=== PATIENT | female | born 1975 | race African-American/Black ===

== ENCOUNTER 2023-10-16 19:37 | Inpatient (IN) | payer OTHER, SELFPAY ==
[2023-10-16] MEDS ORDERED: hydrALAZINE 20 MG/ML VIAL SLOW IVP PRN (21:26)
[2023-10-16] MEDS ORDERED: Labetalol HCl 100 MG/20 ML VIAL SLOW IVP PRN (21:26)
[2023-10-16] MEDS ORDERED: Acetaminophen 325 MG TAB PO PRN (21:26)
[2023-10-16] MEDS ORDERED: Ondansetron PF 4 MG/2 ML Vial IVP PRN (21:26)
[2023-10-17 05:46] LABS: #Eosinphils 0.1 thou/uL (0.0-0.7); #Monocytes 0.3 thou/uL (0.11-0.59); #Neutrophils 1.4 thou/uL (1.40-6.50); %Basophils 0.3 % (0.0-1.0); %Eosinophils 2.2 % (0.0-10.0); %Lymphocytes 43.6 % (21.0-51.0); %Monocytes 9.3 % (0.0-10.0); %Neutrophils 44.3 % (42.0-75.0); Hematocrit 32.4 % (36.0-47.0); Hemoglobin 10.2 g/dL (12.0-16.0); Mean Corpuscular HGB CONC 31.5 g/dL (32.0-36.0); Mean Corpuscular Hemoglobin 24.2 pg (27.0-31.0); Mean Platelet Volume 9.9 fL (7.4-10.4); Platelet Count 242 10x3/uL (130-400); RBC Distribution Width 14.6 % (11.5-14.5); Red Blood Cell (RBC) Count 4.21 mill/uL (4.20-5.40); White Blood Cell (WBC) Count 3.2 10x3/uL (4.8-10.8)
[2023-10-17 06:05] LABS: Anion Gap 15 mmol/L (10-20); BUN (Urea Nitrogen) 10 mg/dL (7.0-18.7); Calc. Creatinine Clearance 158 mL/min (70-130); Calcium 8.6 mg/dL (7.8-10.44); Carbon Dioxide 24 mmol/L (22-29); Cardiac Risk 3.9 (Less than 4.5); Chloride 103 mmol/L (98-107); Cholesterol 275 mg/dl (< 200 Desired); Estimated GFR 112; Glucose 108 mg/dL (70-105); HDL Cholesterol 71 mg/dL (>60 Neg Risk); LDL Cholesterol, Calculated 183 mg/dL; Potassium 3.8 mmol/L (3.5-5.1); Sodium 138 mmol/L (136-145); Triglycerides 105 mg/dL (Less than 150)
[2023-10-17] MEDS: Aspirin 325 mg Enteric Coated Tablet PO SCH (09:19)
[2023-10-17 13:36] LABS: PTT 29.1 sec (22.9-36.1)
[2023-10-17 13:37] LABS: D-Dimer Test 1.67 mcg/mL (0.27-0.43); Prothrombin Time 12.8 sec (12.0-14.7)
[2023-10-17 15:11] LABS: Hemoglobin A1c 6.1 % (4.0-6.0)
[2023-10-17 16:51] LABS: Free T4 (Free Thyroxine) 0.93 ng/dL (0.70-1.48); Thyroid Stimulating Hormone 0.9931 uIU/mL (0.35-4.94)
[2023-10-17 18:19] LABS: Amphetamine Not Detected (NotDetected); Barbiturates Screen Not Detected (NotDetected); Benzodiazepine Screen Not Detected (NotDetected); Cocaine Metabolite Screen Not Detected (NotDetected); Methadone Not Detected (NotDetected); Methamphetamine Not Detected (NotDetected); Opiate Screen Not Detected (NotDetected); Oxycodone Screen Not Detected (NotDetected); Phencyclidine (PCP) Not Detected (NotDetected); THC/Cannabinoid Screen Not Detected (NotDetected); Tricyclic Screen Not Detected (NotDetected)
[2023-10-17] MEDS: Atorvastatin Calcium 40 MG TAB PO SCH (21:47)
[2023-10-18 05:22] LABS: #Eosinphils 0.1 thou/uL (0.0-0.7); #Monocytes 0.3 thou/uL (0.11-0.59); #Neutrophils 1.2 thou/uL (1.40-6.50); %Basophils 0.3 % (0.0-1.0); %Eosinophils 1.7 % (0.0-10.0); %Lymphocytes 45.8 % (21.0-51.0); %Monocytes 10.1 % (0.0-10.0); %Neutrophils 41.8 % (42.0-75.0); Hematocrit 32.8 % (36.0-47.0); Hemoglobin 10.4 g/dL (12.0-16.0); Mean Corpuscular HGB CONC 31.7 g/dL (32.0-36.0); Mean Corpuscular Hemoglobin 24.1 pg (27.0-31.0); Mean Corpuscular Volume 76.1 fl (78.0-98.0); Mean Platelet Volume 9.3 fL (7.4-10.4); Platelet Count 215 10x3/uL (130-400); RBC Distribution Width 14.3 % (11.5-14.5); Red Blood Cell (RBC) Count 4.31 mill/uL (4.20-5.40)
[2023-10-18 05:34] LABS: Anion Gap 13 mmol/L (10-20); BUN (Urea Nitrogen) 12 mg/dL (7.0-18.7); Calc. Creatinine Clearance 148 mL/min (70-130); Calcium 8.7 mg/dL (7.8-10.44); Carbon Dioxide 24 mmol/L (22-29); Chloride 103 mmol/L (98-107); Estimated GFR 110; Glucose 131 mg/dL (70-105); Potassium 3.9 mmol/L (3.5-5.1); Sodium 136 mmol/L (136-145)
[2023-10-18] MEDS: Hydrochlorothiazide 25 MG TAB PO SCH (09:38)
[2023-10-18] MEDS: Lisinopril 20 MG TAB PO SCH (09:38)
[2023-10-19 05:43] LABS: Iron 42 ug/dL (50-170); Iron Binding Capacity, Total 319 mcg/dL (265-497)
[2023-10-19] MEDS ORDERED: PROPOFOL 200 MG/20 ML VIAL ONE (12:56)
[2023-10-19 14:07] LABS: Cardiolipin IgG Ab 1.1 GPL-U/mL (<10 Negative); Cardiolipin IgM Ab Less than 0.9 MPL-U/mL (<10 Negative); EliA APS New Method **** NEW METHOD ****
[2023-10-20] MEDS: Ferrous Sulfate 325 MG TAB PO SCH (09:09)
[2023-10-20 13:00] VITALS: BP 120/76; TEMP 97.5
[2023-10-24 15:23] LABS: HEX PHOS LA Tube 1 39.9 SEC; HEX PHOS LA Tube 2 39.3 SEC; Hexagonal Phospholipid Neut 0.6 SEC (0-8.0)
== END 2023-10-20 16:49 | disposition home or self-care (01) | DRG 65 ==
LOC: 2SE 19:37 → OBSVTOIN 10-17 14:25
PROVIDERS: ADMIT Internal Medicine; ATTEND Family Medicine
DX: I63.9 Cerebral infarction, unspecified (principal); Q21.12 Patent foramen ovale; I10 Essential (primary) hypertension; R47.81 Slurred speech; R29.810 Facial weakness; R47.1 Dysarthria and anarthria; E78.5 Hyperlipidemia, unspecified; G83.11 Monoplegia of lower limb affecting right dominant side; D64.9 Anemia, unspecified; R73.03 Prediabetes; Z79.899 Other long term (current) drug therapy; Z90.710 Acquired absence of both cervix and uterus; Z98.890 Other specified postprocedural states
CPT/HCPCS: 36415; 70551; 80048; 80061; 80306; 82728; 83036; 83090; 83540; 83550; 84439; 84443; 85025; 85300; 85303; 85305; 85307; 85598; 85610; 85730; 86147; 93306; 93312; 93970; J2704